=== PATIENT | female | born 1960 | race Caucasian/White ===

== ENCOUNTER 2016-02-16 09:58 | Emergency (ER) | payer BC ==
[~2016-02-16] VITALS: Ht 152.4 cm; Wt 53.5 kg
[2016-02-16] MEDS ORDERED: IV NORMAL SALINE 1000ML BAG 1,000 ML IV SCH (12:25)
[2016-02-16] MEDS ORDERED: METOCLOPRAMIDE HCL 10 MG/2 ML VIAL. IV ONE (12:30)
[2016-02-16] MEDS ORDERED: FAMOTIDINE 20 MG/2 ML VIAL IVP ONE (12:30)
[2016-02-16 12:53] LABS: BASO % 1 % (0-3); EOS % 1 % (0-3); HEMATOCRIT 43.4 % (36.0-47.0); HEMOGLOBIN 14.5 g/dL (12.0-15.5); LYMPH # 1.6 x10^3/uL (1.0-4.8); LYMPH % 34 % (24-48); MEAN CORPUSCULAR HEMOGLOBIN 31 pg (25-35); MEAN CORPUSCULAR HGB CONC 34 g/dL (31-37); MEAN CORPUSCULAR VOLUME 93 fL (79-100); MONO % 9 % (0-9); NEUT % 55 % (31-73); PLATELET COUNT 227 x10^3/uL (140-400); RED BLOOD COUNT 4.67 x10^6/uL (3.50-5.40); RED CELL DISTRIBUTION WIDTH 13.4 % (11.5-14.5); WHITE BLOOD COUNT 4.6 x10^3/uL (4.0-11.0)
[2016-02-16] MEDS ORDERED: LORAZEPAM 2 MG/ML VIAL IV ONE (13:00)
[2016-02-16 13:12] LABS: CALCIUM 9.8 mg/dL (8.5-10.1); CREATININE 0.7 mg/dL (0.6-1.0); GFR 86.2; POTASSIUM 4.1 mmol/L (3.5-5.1)
[2016-02-16 13:15] LABS: ALBUMIN 3.9 g/dL (3.4-5.0); TOTAL PROTEIN 7.7 g/dL (6.4-8.2)
[2016-02-16 13:16] LABS: BILIRUBIN,URINE SMALL (NEG); GLUCOSE,URINE NEGATIVE (NEG); NITRITE,URINE NEGATIVE (NEG); PH,URINE 5.5; PROTEIN,URINE NEGATIVE (NEG-TRACE)
--- NOTE | 2016-02-16 13:23 | RAD ---
EXAM: Abdomen acute complete. HISTORY: Belching. COMPARISON: None. FINDINGS: A frontal view of the chest and frontal upright and supine views of the abdomen are obtained. There is no infiltrate, effusion or pneumothorax. The heart is normal in size. There is no abnormally dilated air-filled loop of bowel. There is no intraperitoneal free air. IMPRESSION: 1. No acute pulmonary finding. 2. Nonobstructive bowel gas pattern.
[2016-02-16 13:37] LABS: BACTERIA,URINE 0 /HPF (0-FEW); RBC,URINE 0 /HPF (0-2); SQUAMOUS EPITHELIAL CELL,UR FEW /LPF; WBC,URINE 0 /HPF (0-4)
[2016-02-16] MEDS ORDERED: FAMO20TA5 PO (13:58)
[2016-02-16] MEDS ORDERED: ONDA4TAB10 SL (13:58)
--- NOTE | 2016-02-16 13:58 | PHYS DOC ---
Past Medical History Past Medical History: GERD, Other Additional Past Medical Histor: SIBO Past Surgical History: , Tonsillectomy, Tubal ligation Alcohol Use: Occasionally Drug Use: None Adult General Chief Complaint Chief Complaint: OTHER COMPLAINTS HPI HPI Patient is a 55 year old female who presents with complaint of abdominal discomfort. Patient states that she has been having difficulty tolerating fluids due to an increased amount of belching over the past several days. The patient states that she has a history of small intestine bacterial overgrowth. Patient states that she follows with a "Functional Doctor" who helped improve this by placing the patient on a special diet which helped reduce her symptoms. Patient states that over the holidays she started eating foods that when against her diet and has now caused her symptoms to get worse. Patient states that she has gotten to the point where she cannot drink fluids because she has a significant amount of gas buildup in her stomach and has difficulty belching. Patient denies any vomiting or diarrhea and has not had any fevers. Patient states that she had followed in the past with a texturing machine fixer but states "he was worthless." Patient currently denies pain. Patient has not taken any medications to help with symptoms. Review of Systems Review of Systems Constitutional: Denies fever or chills [] Eyes: Denies change in visual acuity, redness, or eye pain [] HENT: Denies nasal congestion or sore throat [] Respiratory: Denies cough or shortness of breath [] Cardiovascular: Denies chest pain or edema [] GI: Belching, abdominal discomfort, denies vomiting or diarrhea [] : Denies dysuria or hematuria [] Musculoskeletal: Denies back pain or joint pain [] Integument: Denies rash or skin lesions [] Neurologic: Denies headache, focal weakness or sensory changes [] Endocrine: Denies polyuria or polydipsia [] Current Medications Current Medications Current Medications Medications (Trade) Dose Ordered Sig/Gera Start Time Stop Time Status Last Admin Dose Admin Famotidine (Pepcid) 20 mg 1X ONCE 02/16/16 12:30 02/16/16 12:31 DC 02/16/16 12:39 20 MG Lorazepam (Ativan) 1 mg 1X ONCE 02/16/16 13:00 02/16/16 13:01 DC 02/16/16 13:23 1 MG Metoclopramide HCl (Reglan) 10 mg 1X ONCE 02/16/16 12:30 02/16/16 12:31 DC 02/16/16 12:38 10 MG Sodium Chloride (Iv Sodium Chloride 0.9% 1000ml Bag) 1,000 ml @ 1,000 mls/hr Q1H 02/16/16 12:25 02/16/16 13:24 DC 02/16/16 12:39 1,000 MLS/HR Allergies Allergies Allergies Coded Allergies Type Severity Reaction Last Updated Verified No Known Drug Allergies 02/16/16 No Physical Exam Physical Exam Constitutional: Alert, afebrile, appears anxious. [] HENT: Normocephalic, atraumatic, bilateral external ears normal, oropharynx moist, no oral exudates, nose normal. [] Eyes: PERRLA, EOMI, conjunctiva normal, no discharge. [] Neck: Normal range of motion, no tenderness, supple, no stridor. [] Cardiovascular:Heart rate regular rhythm, no murmur [] Lungs & Thorax: Bilateral breath sounds clear to auscultation [] Abdomen: Bowel sounds normal, soft, no tenderness, no masses, no pulsatile masses. [] Skin: Warm, dry, no erythema, no rash. [] Back: No tenderness, no CVA tenderness. [] Extremities: No tenderness, no cyanosis, no clubbing, ROM intact, no edema. [] Neurologic: Alert and oriented X 3, normal motor function, normal sensory function, no focal deficits noted. [] Current Patient Data Vital Signs Vital Signs Date Time Temp Pulse Resp B/P Pulse Ox O2 Delivery O2 Flow Rate FiO2 02/16/16 14:13 74 111/69 99 Room Air 02/16/16 11:00 98.7 20 98.7 Lab Values Laboratory Tests Test 02/16/16 12:45 02/16/16 13:00 White Blood Count 4.6x10^3/uL (4.0-11.0) Red Blood Count 4.67x10^6/uL (3.50-5.40) Hemoglobin 14.5g/dL (12.0-15.5) Hematocrit 43.4% (36.0-47.0) Mean Corpuscular Volume 93fL (79-100) Mean Corpuscular Hemoglobin 31pg (25-35) Mean Corpuscular Hemoglobin Concent 34g/dL (31-37) Red Cell Distribution Width 13.4% (11.5-14.5) Platelet Count 227x10^3/uL (140-400) Neutrophils (%) (Auto) 55% (31-73) Lymphocytes (%) (Auto) 34% (24-48) Monocytes (%) (Auto) 9% (0-9) Eosinophils (%) (Auto) 1% (0-3) Basophils (%) (Auto) 1% (0-3) Neutrophils # (Auto) 2.5x10^3uL (1.8-7.7) Lymphocytes # (Auto) 1.6x10^3/uL (1.0-4.8) Monocytes # (Auto) 0.4x10^3/uL (0.0-1.1) Eosinophils # (Auto) 0.0x10^3/uL (0.0-0.7) Basophils # (Auto) 0.0x10^3/uL (0.0-0.2) Sodium Level 143mmol/L (136-145) Potassium Level 4.1mmol/L (3.5-5.1) Chloride Level 103mmol/L (98-107) Carbon Dioxide Level 27mmol/L (21-32) Anion Gap 13 (6-14) Blood Urea Nitrogen 18mg/dL (7-20) Creatinine 0.7mg/dL (0.6-1.0) Estimated GFR (Cockcroft-Gault) 86.2 BUN/Creatinine Ratio 26 (6-20) H Glucose Level 85mg/dL (70-99) Calcium Level 9.8mg/dL (8.5-10.1) Total Bilirubin 1.0mg/dL (0.2-1.0) Aspartate Amino Transferase (AST) 18U/L (15-37) Alanine Aminotransferase (ALT) 19U/L (14-59) Alkaline Phosphatase 100U/L (46-116) Total Protein 7.7g/dL (6.4-8.2) Albumin 3.9g/dL (3.4-5.0) Albumin/Globulin Ratio 1.0 (1.0-1.7) Lipase 149U/L (73-393) Urine Collection Type Unknown Urine Color Teresita Urine Clarity Clear Urine pH 5.5 Urine Specific [place] 1.025 Urine Protein Negativemg/dL (NEG-TRACE) Urine Glucose (UA) Negativemg/dL (NEG) Urine Ketones (Stick) >=80mg/dL (NEG) Urine Blood Negative (NEG) Urine Nitrite Negative (NEG) Urine Bilirubin Small (NEG) Urine Urobilinogen Dipstick 1.0mg/dL (0.2 mg/dL) Urine Leukocyte Esterase Negative (NEG) Urine RBC 0/HPF (0-2) Urine WBC 0/HPF (0-4) Urine Squamous Epithelial Cells Few/LPF Urine Bacteria 0/HPF (0-FEW) Urine Mucus Marked/LPF Laboratory Tests 02/16/16 12:45 Laboratory Tests 02/16/16 12:45 EKG EKG Not performed Radiology/Procedures Radiology/Procedures [facility] [address] [place] [address] IMAGING REPORT Signed PATIENT: GIBSON SALINAS ACCOUNT: [id number] : 1960 LOCATION: ER AGE: 55 SEX: F EXAM STATUS: REG ER ORD. PHYSICIAN: DAISY MANRIQUEZ MD REASON: abdominal bloating, belching PROCEDURE: ACUTE ABDOMEN SERIES EXAM: Abdomen acute complete. HISTORY: Belching. COMPARISON: None. FINDINGS: A frontal view of the chest and frontal upright and supine views of the abdomen are obtained. There is no infiltrate, effusion or pneumothorax. The heart is normal in size. There is no abnormally dilated air-filled loop of bowel. There is no intraperitoneal free air. IMPRESSION: 1. No acute pulmonary finding. 2. Nonobstructive bowel gas pattern. DICTATED and SIGNED BY: EDEL PARK MD DATE: 02/16/16 1501 CC: LULU CABALLERO; DAISY MANRIQUEZ MD ~ [] Course & Med Decision Making Course & Med Decision Making Pertinent Labs and Imaging studies reviewed. (See chart for details) The patient was given lorazepam and Reglan in the emergency department with improvement in symptoms. The patient will be continued on Zofran and Pepcid. Recommended use of probiotics to help with symptoms and follow-up with primary doctor in the next 3 days. Recommended return to emergency department for any worsening symptoms. Dragon Disclaimer Dragon Disclaimer This electronic medical record was generated, in whole or in part, using a voice recognition dictation system. Departure Departure Impression: Primary Impression: Dyspepsia Disposition: 01 HOME, SELF-CARE Condition: IMPROVED Referrals: LULU CABALLERO (PCP) Patient Instructions: Abdominal Pain (Nonspecific) Additional Instructions: You have been prescribed medications to help you with your symptoms. It is recommended that you follow-up in the next 3 days with your primary doctor. Return to the emergency department for any worsening symptoms. Scripts Ondansetron (Zofran Odt)4 Mg Tab.rapdis1 Tab SL Q8HRS PRN NAUSEA/VOMITING #15 TAB Prov:DAISY MANRIQUEZ MD 02/16/16 Famotidine 20 Mg Uaqopy45 Mg PO BID #30 TAB Prov:DAISY MANRIQUEZ MD 02/16/16 DAISY MANRIQUEZ MD Feb 16, 2016 13:58
[2016-02-16 14:13] VITALS: BP 111/69
== END 2016-02-16 14:25 | disposition home or self-care (01) ==
LOC: ER 09:58
DX: R10.13 Epigastric pain (principal); K21.9 Gastro-esophageal reflux disease without esophagitis; Z98.51 Tubal ligation status
CPT/HCPCS: 36415; 74022; 80053; 81001; 83690; 85027; 96361; 96374; 96375; 99285; J2060; J2765; J7030; S0028

== ENCOUNTER 2021-01-20 08:41 | Emergency (ER) | payer BC ==
[~2021-01-20] VITALS: Ht 152.4 cm; Wt 52.3 kg
[~2021-01-20 08:41] MED LIST: FAMO20TA5 PO; ONDA4TAB10 SL
[2021-01-20 09:46] LABS: BASE EXCESS COOX 4 mmol/L (-3-3); HCO3 COOX 26 mmol/L (21-28); METHEMOGLOBIN 0.3 % (0.0-1.9); OXYHEMOGLOBIN 93.8 %; PCO2 COOX 31 mmHg (35-46); PO2 COOX 65 mmHg (65-108); SAT O2 COOX 94 % (92-99)
[2021-01-20] MEDS ORDERED: IV NORMAL SALINE 1000ML BAG 1,000 ML IV ONE (10:00)
[2021-01-20 10:03] LABS: BASO % 1 % (0-3); EOS % 0 % (0-3); HEMATOCRIT 38.9 % (36.0-47.0); HEMOGLOBIN 12.9 g/dL (12.0-15.5); LYMPH # 0.8 x10^3/uL (1.0-4.8); LYMPH % 18 % (24-48); MEAN CORPUSCULAR HEMOGLOBIN 31 pg (25-35); MEAN CORPUSCULAR HGB CONC 33 g/dL (31-37); MEAN CORPUSCULAR VOLUME 93 fL (79-100); MONO # 0.5 x10^3/uL (0.0-1.1); MONO % 12 % (0-9); NEUT # 2.9 x10^3/uL (1.8-7.7); NEUT % 69 % (31-73); PLATELET COUNT 249 x10^3/uL (140-400); RED BLOOD COUNT 4.19 x10^6/uL (3.50-5.40); RED CELL DISTRIBUTION WIDTH 13.1 % (11.5-14.5); WHITE BLOOD COUNT 4.2 x10^3/uL (4.0-11.0)
--- NOTE | 2021-01-20 10:07 | PHYS DOC ---
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 She states that she has been using homemade hydroxychloroquine, zinc, elderberry, mallorie zinc nebulized and Mucinex, Tylenol and ibuprofen. She is a history of and GERD. She is not vaccinated. Patient is asking for ivermectin and hydroxychloroquine upon discharge. No pain at this time. She states that she used a O2 monitor at home that showed 89% so that is why she came in today. She states she is not having shortness of breath, chest pain, fever, dizziness, abdominal pain, numbness or tingling, focal weakness, syncope. ([employer] M[employer] NETWORKS SOFTWARE CONSULTANT) Review of Systems: Review of Systems: Constitutional: Denies fever or chills. [] Eyes: Denies change in visual acuity. [] HENT: Denies nasal congestion or sore throat. [] Respiratory: + cough or denies shortness of breath. [] Cardiovascular: Denies chest pain or edema. [] GI: Denies abdominal pain, +nausea, denies vomiting, bloody stools or +diarrhea. [] : Denies dysuria. [] Musculoskeletal: Denies back pain or joint pain. [] Integument: Denies rash. [] Neurologic: Denies headache, focal weakness or sensory changes. [] Endocrine: Denies polyuria or polydipsia. [] Lymphatic: Denies swollen glands. [] Psychiatric: Denies depression or anxiety. [] ([employer] NET[employer] SOFTWARE CONSULTANT) Heart Score: C/O Chest Pain: No HEART Score for Chest Pain: HEART Score for Chest Pain Response (Comments) Value History Slighlty/Non-Suspicious 0 ECG Normal 0 Age >45 - < 65 1 Risk Factors No Risk Factors 0 Troponin < Normal Limit 0 Total 1 Risk Factors: Risk Factors: DM, Current or recent (<one month) smoker, HTN, HLP, family history of CAD, obesity. Risk Scores: Score 0 - 3: 2.5% MACE over next 6 weeks - Discharge Home Score 4 - 6: 20.3% MACE over next 6 weeks - Admit for Clinical Observation Score 7 - 10: 72.7% MACE over next 6 weeks - Early Invasive Strategies ([facility] APRN) Allergies: Allergies: Allergies Coded Allergies Type Severity Reaction Last Updated Verified No Known Drug Allergies 02/16/16 No ([facility] SOFTWARE CONSULTANT) Physical Exam: PE: Constitutional: Well developed, well nourished, no acute distress, non-toxic appearance. [] HENT: Normocephalic, atraumatic, bilateral external ears normal, oropharynx moist, no oral exudates, nose normal. [] Eyes: PERRLA, EOMI, conjunctiva normal, no discharge. [] Neck: Normal range of motion, no tenderness, supple, no stridor. [] Cardiovascular:Heart rate regular rhythm, no murmur [] Lungs & Thorax: Bilateral upper breath sounds clear lower diminished to auscultation [] Abdomen: Bowel sounds normal, soft, no tenderness, no masses, no pulsatile masses. [] Skin: Warm, dry, no erythema, no rash. [] Back: No tenderness, no CVA tenderness. [] Extremities: No tenderness, no cyanosis, no clubbing, ROM intact, no edema. [] Neurologic: Alert and oriented X 3, normal motor function, normal sensory function, no focal deficits noted. [] Psychologic: Affect normal, judgement normal, mood normal. [] ([facility]WOR[facility] SOFTWARE CONSULTANT) Current Patient Data: Labs: Laboratory Tests Test 01/20/21 09:19 O2 Saturation 94 % (92-99) Arterial Blood pH 7.54 (7.35-7.45) H Arterial Blood pCO2 at Patient Temp 31 mmHg (35-46) L Arterial Blood pO2 at Patient Temp 65 mmHg (65-108) Arterial Blood HCO3 26 mmol/L (21-28) Arterial Blood Base Excess 4 mmol/L (-3-3) H Oxyhemoglobin 93.8 % Methemoglobin 0.3 % (0.0-1.9) Carbon Monoxide, Quantitative 0.3 % (0.0-1.9) FiO2 21/ra Vital Signs: Vital Signs Date Time Temp Pulse Resp B/P (MAP) Pulse Ox O2 Delivery O2 Flow Rate FiO2 01/20/21 09:00 98.3 73 22 122/82 (95) 93 Room Air 98.3 (ELÍAS MILLER APRN) EKG: EK and read by Dr Zacarias as Sinus Rhythm and no STEMI (ELÍAS MILLER APRN) Radiology/Procedures: Radiology/Procedures: [] Impression: [facility] [address] [place] [address] IMAGING REPORT Signed PATIENT: GIBSON SALINAS ACCOUNT: [id number] : 1960 LOCATION: ER AGE: 60 SEX: F EXAM STATUS: REG ER ORD. PHYSICIAN: ELÍAS MILLER APRN REASON: cough, pui, soa PROCEDURE: PORTABLE CHEST 1V Site ID: [id number] EXAMINATION: XR CHEST 1V. HISTORY: 60 years Female Reason: cough, pui, soa / . COMPARISON: None. Findings: There is a multifocal interstitial infiltrate seen with no airspace consolidation. The heart size is normal. There is no effusion or pneumothorax. The mediastinum and javier appear unremarkable. Impression: Findings may relate to atypical infection such as Covid pneumonia. Electronically signed by: Christiane Underwood MD (01/20/2021 10:20 AM) [id number] DICTATED and SIGNED BY: CHRISTIANE UNDERWOOD MD DATE: 01/20/21 [id number] (ELÍAS MILLER APRN) Course & Med Decision Making: Course & Med Decision Making Pertinent Labs and Imaging studies reviewed. (See chart for details) COVID-19 CRITERIA: The patient was evaluated during the global COVID-19 pandemic, and that diagnosis was suspected/considered upon their initial presentation. Their evaluation, treatment and testing was consistent with current guidelines for patients who present with complaints or symptoms that may be related to COVID-19. See HPI. Alert and oriented x4. Ambulatory steady gait. Speaks in full clear sentences. Skin pink warm and dry. Lungs are clear in upper lobes and diminished in lower lobes. No extremity edema. Afebrile. She is 93 to 94% on room air. No stridor or respiratory distress. Blood work generally unremarkable. She does have some elevated LFTs. Chest x- ray does show some Covid pneumonia. She is not hypoxic. I have gone over this patient with Dr. Zacarias. He states patient is okay to go home. [] (ELÍAS MILLER APRN) Sheeba Disclaimer: Sheeba Disclaimer: This electronic medical record was generated, in whole or in part, using a voice recognition dictation system. (ELÍAS MILLER APRN) COVID-19 Patient Risks: Age 65 or older: No Sign of co-morbidity: No Exp to person + for COVID: Yes Exp to PUI: Yes Travel from affected area: No Lower respiratory symptoms: Yes Fever: No Other: Yes (n,v) (ELÍAS MILLER APRN) PPE Use: Full PPE with N95 mask or PAPR: Yes (ELÍAS MILLER APRN) Departure Departure Impression: Primary Impression: Pneumonia due to COVID-19 virus Additional Impression: Hypokalemia Disposition: 01 HOME / SELF CARE / HOMELESS Condition: STABLE Referrals: LULU CABALLERO (PCP) Patient Instructions: Hypokalemia, Pneumonia, Adult Additional Instructions: Drink plenty of fluids. Take medication as prescribed and with food. Take Tylenol for any pain. Follow-up with primary care provider. Quarantine. If you begin having severe shortness of breath, chest pain or cannot keep down fluids return to emergency room. You have been tested for or diagnosed with COVID-19. It is an infection caused by a new type of coronavirus. COVID-19 will cause cold-like or mild flu symptoms in most. It can cause more severe symptoms like problems breathing in some. There is no treatment for COVID-19. The body will clear the infection over time. Self-care will help to ease discomfort. Steps to Take: Self-Care Rest as needed. Healthy habits may help you feel better. Steps include: Choose healthy foods including fruits and vegetables. Drink water throughout the day. Get plenty of sleep each night. If you smoke, try to quit. It may ease breathing. Avoid alcohol. Keep Others Healthy The virus can spread to others. Droplets are released every time you sneeze or cough. The droplets can get into the mouth, nose, or eyes of people near you and lead to infection. To lower the chances of spreading COVID-19 to others: Stay at home until your doctor has said it is safe to leave. If you tested positive this will mean staying isolated until both of the following are true: At least 7 days have passed since the start of illness. You are free of fever for at least 72 hours without the use of medicine. During this time: - Avoid public areas, events, or transportation. Do not return to work or school until your doctor has said it is safe to do so. - Call ahead if you need to go to a medical center. Let them know you may have COVID-19. It will help them guide you where to go. They may also ask you to wear a facemask when you come to the office. - If you call for emergency medical services, let them know you may have COVID- 19. While at home: - Try to avoid close contact with others. Stay about 6 feet away. - If possible, spend most of your time in a separate room from others. - Use a face mask if you will be in close contact with others such as sharing a room or vehicle. - Have someone wipe down common surfaces in the home. Use household livestock speculator every day on areas like doorknobs, counters, or sinks. - Cough or sneeze into a tissue. Throw the tissue away right after use. If a tissue is not available, cough or sneeze into your elbow. - Wash your hands often. Wash them after sneezing or coughing. Use soap and water and wash for at least 20 seconds. Alcohol based hand building cleaner can be used if soap and wa ter is not available. - Do not prepare food for others. Avoid sharing personal items like forks, spoons, or toothbrushes. - Avoid close contact with pets while you are sick. There is no evidence of the virus passing to pets. This is a safety step until more is known about this virus. Isolation can be frustrating. Social interaction can help. Keep in touch with friends and family through phone and tech options. You can still interact with others in your home, just keep a safe distance of about 6 feet. Follow-up: Your doctors office will check in with you to see if there are any changes in your health. You may be asked to keep track of symptoms to share with them. They will also let you know when you are clear to be in public again. Problems to Look Out For: Contact your doctor if your recovery is not going as you expect. Get emergency care if you have problems such as: - Trouble breathing - Nonstop chest pain or pressure - Changes in awareness, confusion, or problems waking - Lips or face have bluish color - Worsening of symptoms If you think you have an emergency, call for emergency medical services right away. As taken from [facility] Albuterol Sulfate (PROAIR HFA INHALER) 8.5 Gm Hfa.aer.ad 1 PUFF INH PRN Q6HRS PRN for SHORTNESS OF BREATH, #1 EACH 0 Refills Prov: ELÍAS MILLER APRN 01/20/21 Methylprednisolone (MEDROL) 4 Mg Tab.ds.pk 1 PKG PO UD, #1 PKG Prov: ELÍAS MILLER APRN 01/20/21 Attending Signature I have participated in the care of this patient and I have reviewed and agree with all pertinent clinical information above including history, exam, and recommendations. (LADONNA ZACARIAS DO) ELÍAS MILLER APRN Jan 20, 2021 10:07 LADONNA ZACARIAS DO Jan 20, 2021 14:12
[2021-01-20 10:21] LABS: ALBUMIN 2.9 g/dL (3.4-5.0); ALBUMIN/GLOBULIN RATIO 0.7 (1.0-1.7); CALCIUM 8.6 mg/dL (8.5-10.1); CREATININE 0.5 mg/dL (0.6-1.0); TOTAL BILIRUBIN 0.5 mg/dL (0.2-1.0); TOTAL PROTEIN 6.9 g/dL (6.4-8.2)
--- NOTE | 2021-01-20 10:22 | RAD ---
Site ID: [id number] EXAMINATION: XR CHEST 1V. HISTORY: 60 years Female Reason: cough, pui, soa / . COMPARISON: None. Findings: There is a multifocal interstitial infiltrate seen with no airspace consolidation. The hear t size is normal. There is no effusion or pneumothorax. The mediastinum and javier appear unremarkable. Impression: Findings may relate to atypical infection such as Covid pneumonia. Electronically signed by: Bridger Underwood MD (01/20/2021 10:20 AM) [id number]
[2021-01-20 10:24] LABS: BILIRUBIN,URINE NEGATIVE (NEG); COLOR,URINE YELLOW; NITRITE,URINE NEGATIVE (NEG); PH,URINE 6.5 (<5.0-8.0); PROTEIN,URINE 100 mg/dL (NEG-TRACE); UROBILINOGEN,URINE 0.2 mg/dL (0.2 mg/dL)
[2021-01-20 10:27] LABS: POTASSIUM 2.8 mmol/L (3.5-5.1)
[2021-01-20 10:43] LABS: HYALINE CASTS, URINE FEW /HPF
[2021-01-20 10:44] LABS: BACTERIA,URINE FEW /HPF (0-FEW); RBC,URINE 0 /HPF (0-2)
[2021-01-20 10:45] LABS: CLARITY,URINE CLEAR
[2021-01-20] MEDS ORDERED: ONDANSETRON PF 4 MG/2 ML VIAL. IVP ONE (10:45)
[2021-01-20] MEDS ORDERED: POTASSIUM CHLORIDE 20MEQ 100 ML IV ONE ×3 (10:45→13:00)
[2021-01-20] MEDS ORDERED: POTASSIUM CHLORIDE 20 MEQ TABLET.ER. PO ONE (10:45)
[2021-01-20 11:45] LABS: ACETAMIN < 2.0 mcg/ml (10-30)
--- NOTE | 2021-01-20 11:53 | EKG ---
[facility] [address] [place] [address] Test Date: 2021-01-20 Test Time: 09:38:08 Pat Name: GIBSON SALINAS Department: Room: Gender: F [place] [employer]: : 1960 Requested By: ELÍAS MILLER Order Number: [id number] Reading MD: Casey Wilson Measurements Intervals Umbarger Rate: 73 P: 64 ID: [id number] QRS: 34 QRSD: 84 T: 3 QT: 402 QTc: 447 Interpretive Statements SINUS RHYTHM NORMAL ECG RI6.02 No previous ECG available for comparison Electronically Signed On 01-21-2021 15:40:04 HYDROGEN CELL TENDER by Casey Wilson
[2021-01-20] MEDS ORDERED: FAMOTIDINE 20 MG/2 ML VIAL IVP ONE (12:00)
[2021-01-20] MEDS ORDERED: ALBU2.5V8 INH (12:47)
[2021-01-20] MEDS ORDERED: METH4TAB2 PO (12:47)
[2021-01-20 17:47] VITALS: BP 147/84
== END 2021-01-20 18:15 | disposition home or self-care (01) ==
LOC: ER 08:41
DX: U07.1 COVID-19 (principal); J12.82 Pneumonia due to coronavirus disease 2019; E87.6 Hypokalemia; K21.9 Gastro-esophageal reflux disease without esophagitis
CPT/HCPCS: 36415; 36600; 71045; 80053; 80329; 81001; 82805; 83690; 83735; 83880; 84484; 85025; 87426; 93005; 96361; 96365; 96366; 96375; 99285; J3480; J3490; J7030; G0480